=== PATIENT | male | born 1965 | race Caucasian/White ===

== ENCOUNTER 2022-03-26 07:08 | Day surgery (SDC) | payer BC ==
[2022-03-21 09:34] LABS: Protime INR 1.12
[2022-03-21 09:36] LABS: Absolute Lymphocytes (CBC) 0.8 K/uL (0.7-4.9); Hematocrit 39.6 % (39.6-49.0); Lymphocytes % 13.4 % (15.3-44.8); MPV 8.5 fL (7.6-11.3); RBC Red Blood Cell Count 4.78 M/uL (4.33-5.43)
[2022-03-21 09:41] LABS: Potassium 3.6 mmol/L (3.5-5.1)
--- NOTE | 2022-03-21 13:52 | EKG ---
Test Date: 2022-03-21 Test Time: 08:22:51 Printing Screen Assembler: TRIXIE MEASUREMENT RESULTS: Intervals: Rate: 65 MO: 170 QRSD: 86 QT: 366 QTc: 380 [place]: P: 56 MO: 170 QRS: 76 T: 70 INTERPRETIVE STATEMENTS: Normal sinus rhythm Normal ECG No previous ECG available for comparison Electronically Signed On 03-21-22 13:51:44 CDT by Jacob Oneal
[2022-03-26] MEDS ORDERED: Ringers Lactate 1,000 ML IV ONE (07:26)
[2022-03-26] MEDS ORDERED: CEFAZOLIN 2 GM IN 0.9% NACL 2 GM/100 ML BAG IV ONE (08:00)
[2022-03-26] MEDS ORDERED: propofoL 200 MG/20 ML VIAL IV ONE (09:02)
[2022-03-26] MEDS ORDERED: LIDOCAINE 1% MPF 5 ML VIAL ONE (09:03)
[2022-03-26] MEDS ORDERED: MIDAZOLAM HCL 2 MG/2 ML INJ ONE (09:03)
[2022-03-26] MEDS ORDERED: FENTANYL CITR 100 MCG/2 ML ONE (09:03)
[2022-03-26] MEDS ORDERED: dexAMETHasone 10 MG/ML VIAL ONE (09:45)
[2022-03-26] MEDS ORDERED: KETOROLAC 30 MG/ML INJ ONE (09:56)
[2022-03-26] MEDS ORDERED: ONDANSETRON 4 MG/2 ML VIAL ONE (09:56)
[2022-03-26] MEDS ORDERED: CODEINE 30MG/APAP 300MG TAB PO PRN (10:08)
[2022-03-26 11:23] VITALS: TEMP 97.3
[2022-03-26 11:57] VITALS: BP 142/104; O2SAT 99
--- NOTE | 2022-03-26 20:43 | OP ---
Surgeon: HODAN ONEILL Preoperative Diagnoses: 1.Left nephrolithiasis, 8 mm. 2.Recurrent/persistent enterococcus urinary tract infection. Postoperative Diagnoses: 1.Left nephrolithiasis, 8 mm. 2.Recurrent/persistent enterococcus urinary tract infection. Principle Procedures: Left extracorporeal shockwave lithotripsy. Indication For Procedure: Mr. Basurto is a 56-year-old gentleman with Enterococcus urinary tract inf ection associated with BPH with lower urinary tract symptoms of incomplete emptying and intermittent gross and microscopic hematuria, who underwent a cystoscopic evaluation 11/19/2021 that was unremarka ble other than the presence of BPH and yet despite medical therapy to improve his emptying, he had pe rsistent enterococcus infection. He was thus placed on prophylactic Macrobid antimicrobial therapy t o continue through surgery, and observed on preoperative urine culture, he still had low colony count , Enterococcus infection, sensitive to the penicillins. As a result, he was started on amoxicillin y in preparation for surgery today. Procedure In Detail: The patient was consented in the preoperative holding area before being transfe rred to the operative suite where general anesthesia was induced. He was given Ancef 2 g IV antimicr obial prophylaxis and pneumo boots were provided for DVT prophylaxis. He was placed in the supine on the procedure table, padded and secured appropriately, and a water bath was placed beneath his left flank. Targeting was performed fluoroscopically in the AP and left to right dimensions, and shockwav e lithotripsy was begun. Initially starting at low power and ramping up over the course of 500 shock s, the stone was targeted and quickly did fragment, as observed before even 500 shocks had been deliv ered. After a 1000 shocks, repeat targeting was performed of some density within the cloud where the prior stone had been, and an additional 1000 shocks was delivered. Again, repeat survey of the area was performed, and a residual approximately 2-3 mm linear density was observed inferior to the prior cloud suggestive of residual stone fragment, and so an additional 500 shocks was delivered to that a elza to completely fragment and dust all stone burden within the kidney. He was then awakened from ge neral anesthesia, transferred to a stretcher, and then transferred to the recovery room in good condi tion. A total of 2500 shocks was delivered. Complications: None. Discharge Disposition: He will be discharged to continue the amoxicillin therapy and then to resume the Macrobid therapy while straining his urine. Once he has stopped passing stone dust for at least 2 or 3 days, after that, he can cease taking the Macrobid. Subsequent follow up will be established with me in about 1-2 months' time and if he can leave a urine sample for culture about a week prior t o his followup appointment, we will reassess for persistence of infection. In that setting, consider ation of a management of his BPH may then be in order if still signs of incomplete emptying are prese nt, if infection is still seen and BPH is likely the only remaining source. IESHA/LIANNA Voice ID: [id number] Report ID: [id number]
== END 2022-03-26 13:40 | disposition home or self-care (01) ==
LOC: OR 07:08
PROVIDERS: ATTEND Urology
PROC: 0TF4XZZ Fragmentation in Left Kidney Pelvis, External Approach (ICD-10-PCS; principal; 2022-03-26 08:30)
DX: N20.0 Calculus of kidney (principal); N40.1 Benign prostatic hyperplasia with lower urinary tract symptoms; R31.29 Other microscopic hematuria; Z87.440 Personal history of urinary (tract) infections; Z20.822 Contact with and (suspected) exposure to COVID-19
CPT/HCPCS: 93005; 87088; 85025; 87086; 80048; 36415; 85610; 87077; 87186; 50590 ×2; U0002; J2704; J2250; J3010; J1100; J0690; J7120; J2405